=== PATIENT | female | born 1950 | race Caucasian/White ===

== ENCOUNTER → 2019-05-01 14:30 | Outpatient (CLI) | payer MEDICARE, OTHER, SELFPAY ==
--- NOTE | 2019-05-01 14:34 | DI.RAD.S_ITS ---
PROCEDURE: XR RIBS RT 2V INDICATIONS: cough, right rib pain TECHNIQUE: 2 views of the right ribs were acquired. COMPARISON: None. FINDINGS: Surgical changes and devices: None. Bones and chest wall: No fractures or dislocations. No suspicious bony lesions. Overlying soft tissues appear unremarkable. Lateral curvature of the spine and diffuse spondylosis. Lungs and pleura: The visualized lung appears clear. No pleural effusions or pneumothorax are visible. IMPRESSION: No definite or displaced rib fracture. Dictated by: Joey Fernandez M.D. on 05/01/2019 at 17:44 Approved by: Joey Fernandez M.D. on 05/01/2019 at 17:45
--- NOTE | 2019-05-01 14:34 | DI.RAD.S_ITS ---
PROCEDURE: XR CHEST 2V INDICATIONS: cough TECHNIQUE: 2 views of the chest were acquired. COMPARISON: None. FINDINGS: Surgical changes and devices: None. Lungs and pleura: Mild ill-defined perihilar opacities airway thickening. No pleural effusions or pneumothorax. Mediastinum: Mediastinal contours are normal. Heart size is normal. Mild anterior wedging of a lower thoracic vertebral body. IMPRESSION: Ill-defined perihilar opacities airway thickening suggestive of mild viral bronchitis, reactive airways disease in the differential. Dictated by: Joey Fernandez M.D. on 05/01/2019 at 17:29 Approved by: Joey Fernandez M.D. on 05/01/2019 at 17:33
== END ==
PROVIDERS: PCP Student in an Organized Health Care Education/Training Program; Visit Provider Nurse Practitioner Family
DX: R05 Cough (principal); R07.81 Pleurodynia
CPT/HCPCS: 71046; 71100

== ENCOUNTER → 2019-08-06 15:46 | Outpatient (CLI) | payer MEDICARE, OTHER, SELFPAY ==
--- NOTE | 2019-08-06 15:48 | DI.RAD.S_ITS ---
PROCEDURE: XR CHEST 2V INDICATIONS: Cough, wheezing TECHNIQUE: 2 views of the chest were acquired. COMPARISON: [facility], CR, XR CHEST 2V, 05/01/2019, 14:39. FINDINGS: Surgical changes and devices: None. Lungs and pleura: Lungs are clear. No pleural effusions or pneumothorax. There is prominence of the pulmonary vasculature which is similar in appearance to comparison exam of 05/01/19. Mediastinum: Mediastinal contours are normal. Heart size is normal. Bones and chest wall: Mild anterior wedging deformities of the lower thoracic vertebral bodies are noted, stable to comparison exam of 05/01/19 and likely represent the sequela of chronic degenerative change. IMPRESSION: No acute cardiopulmonary disease. Dictated by: Faustino Dunn M.D. on 08/06/2019 at 17:58 Approved by: Faustino Dunn M.D. on 08/06/2019 at 18:01
== END ==
PROVIDERS: PCP Student in an Organized Health Care Education/Training Program; Visit Provider Student in an Organized Health Care Education/Training Program
DX: R05 Cough (principal); R06.2 Wheezing
CPT/HCPCS: 71046

== ENCOUNTER → 2019-10-20 14:42 | Outpatient (CLI) | payer MEDICARE, OTHER, SELFPAY ==
--- NOTE | 2019-10-20 14:45 | DI.MG.S_ITS ---
BILATERAL DIGITAL SCREENING MAMMOGRAM 3D/2D WITH CAD: 10/20/2019 CLINICAL: Routine screening. Family history of breast cancer. Comparison is made to exams dated: 01/07/2018 mammogram, 11/03/2015 mammogram, and 08/04/2014 mammogram - [facility]. There are scattered fibroglandular elements in both breasts. Current study was also evaluated with a Computer Aided Detection (CAD) system. There is an oval low density mass with a circumscribed margin in the left breast at 12 o'clock middle depth. No other significant masses, calcifications, or other findings are seen in either breast. IMPRESSION: INCOMPLETE: NEEDS ADDITIONAL IMAGING EVALUATION The oval low density mass in the left breast is indeterminate. Mediolateral and spot compression views as well as additional views with possible ultrasound are recommended. This exam was interpreted at Station ID: [id number]. NOTE: For mammograms, a report in lay terms will be sent to the patient. Approximately 15% of breast malignancies will not be visualized mammographically. In the management of a palpable breast mass, a negative mammogram must not discourage biopsy of a clinically suspicious lesion. Electronically Signed By: Arpit siddiqui/carlos:10/20/2019 15:36:12 letter sent: Additional Imaging Needed ACR BI-RADS Category 0: Incomplete 3340F
== END ==
PROVIDERS: PCP Student in an Organized Health Care Education/Training Program; Referring Provider Student in an Organized Health Care Education/Training Program; Visit Provider Student in an Organized Health Care Education/Training Program
DX: Z12.31 Encounter for screening mammogram for malignant neoplasm of breast (principal); Z80.3 Family history of malignant neoplasm of breast; Z13.820 Encounter for screening for osteoporosis; Z78.0 Asymptomatic menopausal state; E07.9 Disorder of thyroid, unspecified; R29.890 Loss of height; Z91.89 Other specified personal risk factors, not elsewhere classified
CPT/HCPCS: 77063; 77067; 77080

== ENCOUNTER → 2019-11-04 14:12 | Outpatient (CLI) | payer MEDICARE, OTHER, SELFPAY ==
--- NOTE | 2019-11-04 14:15 | DI.MG.S_ITS ---
UNILATERAL LEFT DIGITAL DIAGNOSTIC MAMMOGRAM 3D/2D WITH ADDITIONAL VIEWS: 11/04/2019 CLINICAL: Additional evaluation requested from prior study. Comparison is made to exams dated: 10/20/2019 mammogram - [facility], 01/07/2018 mammogram, and 11/03/2015 mammogram - [facility] There are scattered fibroglandular elements in left breast. There is a 0.5 cm oval low density mass with a circumscribed margin in the left breast at 12 o'clock middle depth. This is confirmed on today's additional views. No other significant masses or calcifications are seen in the breast. IMPRESSION: INCOMPLETE: NEEDS ADDITIONAL IMAGING EVALUATION The 0.5 cm oval low density mass in the left breast is indeterminate. An ultrasound is recommended for further evaluation and is scheduled to immediately follow this study. This exam was interpreted at Station ID: [id number]. NOTE: For mammograms, a report in lay terms will be sent to the patient. Approximately 15% of breast malignancies will not be visualized mammographically. In the management of a palpable breast mass, a negative mammogram must not discourage biopsy of a clinically suspicious lesion. Electronically Signed By: Saji Barnes M.D. aty/:11/04/2019 15:06:09 ACR BI-RADS Category 0: Incomplete [id number]
--- NOTE | 2019-11-04 14:15 | DI.US.S_ITS ---
ULTRASOUND OF LEFT BREAST AND AXILLA: 11/04/2019 CLINICAL: Abn mammo. Comparison is made to exams dated: 11/04/2019 mammogram, 10/20/2019 mammogram - [facility], 01/07/2018 mammogram, 11/03/2015 mammogram, and 08/04/2014 mammogram - [facility]. Color flow and real-time ultrasound of the left breast axilla were performed. Park scale images of the real-time examination were reviewed. There is a 0.4 cm x 0.5 cm x 0.3 cm oval mass with a few angular margins in the left breast at 12 o'clock anterior depth 2 cm from the nipple. This oval mass is hypoechoic with a well-defined boundary. This correlates with mammography findings. Color flow imaging demonstrates that there is no vascularity present. No significant abnormalities were seen sonographically in the left axilla. IMPRESSION: SUSPICIOUS OF MALIGNANCY The 0.4 cm x 0.5 cm x 0.3 cm oval mass in the left breast is suspicious of malignancy. An ultrasound guided biopsy is recommended. Findings and biopsy recommendations were discussed with the patient by Dr. Ugarte during today's visit. The patient agrees to proceed with the biopsy. This exam was interpreted at Station ID: [id number]. Electronically Signed By: Saji Barnes M.D. at/:11/04/2019 16:56:18 letter sent: Biopsy Required Ultrasound BI-RADS: 4 Suspicious for malignancy
== END ==
PROVIDERS: PCP Student in an Organized Health Care Education/Training Program; Referring Provider Student in an Organized Health Care Education/Training Program; Visit Provider Student in an Organized Health Care Education/Training Program
DX: R92.8 Other abnormal and inconclusive findings on diagnostic imaging of breast (principal); N63.25 Unspecified lump in the left breast, overlapping quadrants
CPT/HCPCS: 76642; 77065; G0279

== ENCOUNTER → 2019-11-27 13:31 | Outpatient (CLI) | payer MEDICARE, OTHER, SELFPAY ==
--- NOTE | 2019-11-27 | PATH_ITS ---
[facility] Accession Number: [id number] . 01 Material submitted: . breast - LT BREAST . 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 [place] grade: 2 of 3 (moderately differentiated). 2. Greatest linear extent: 0.3 cm. 3. Ductal carcinoma in situ: Present, cribriform pattern, nuclear grade 3 of 3, no necrosis identified. 4. Microcalcifications: Present and associated with benign ductal epithelium. 5. Lymph-vascular invasion: Not identified. 6. Prognostic markers: Will be performed and the results will be reported as an addendum. [facility] 12/01/2019 1419 Local . 02 Comment: assurance assistant was performed by Dr. Eastman. . Dr. Rashid's office not available for discussion of results as of 2:15 p.m. on 12/01/2019. . 02 Electronically signed: . Veronika Huerta MD, Pathologist NPI- [id number] . 01 Gross description: . Received in formalin, labeled US/US BX breast per W vac device, are multiple core biopsies of bright yellow and payne-white fibrofatty tissue (lengths-1.0 cm up to 2.2 cm, diameters-less than 0.1 up to 0.2 cm) and multiple fragments of pale yellow and red-brown tissue (2.5 x 0.8 x 0.1 cm in aggregate). The core biopsies are entirely submitted intact in cassette A1, and the fragments are filtered and entirely submitted in cassette A2. Note: Approximate total fixation time in formalin is 66 hours 30 minutes, calculated using a collection date of 11/27/2019 with a time of formalin of 1500. ([id number]) /MRV 11/28/2019 1342 Local . 02 Pathologist provided ICD-10: C50.912 . 02 CPT . 710795, 573559, 122171, 572932 Performed at: 01 [facility] [address] [id number] MD Arpit Sim MD Phone: [phone] Performed at: 02 [facility] [id number] [place] [id number] MD Colleen Eastman MD Phone: [phone]
--- NOTE | 2019-11-27 | DI.US.S_ITS ---
ULTRASOUND GUIDED BIOPSY LEFT BREAST USING VACUUM DEVICE WITH POST MAMMOGRAPHIC AND ULTRASOUND IMAGIN11/27/2019 CLINICAL: Left breast mass. PATIENT CONSENT: Risks (minor bleeding, infection, vasovagal reaction and repeat procedure), benefits and alternatives were explained to the patient and written informed consent was obtained. Correlation is made to exams dated: 11/04/2019 ultrasound, 11/04/2019 mammogram, 10/20/2019 mammogram - [facility], and 01/07/2018 mammogram - [facility]. An ultrasound guided biopsy using real-time ultrasound was performed for the oval mass located in the left breast at 12 o'clock 2 cm from the nipple measuring 0.4 cm. This was described on the previous ultrasound report. The skin was prepped in the usual manner. Local anesthetic was administered to the access site. The abnormality was approached from the lateral aspect. A 13 gauge biopsy needle was placed adjacent to the abnormality under ultrasound guidance. Once the needle was documented to be in the correct location, 6 specimens were obtained using the Mammotome biopsy system. Post procedure mammographic and ultrasound imaging demonstrates the clip at the targeted area. The specimens were sent to the laboratory for pathological analysis. IMPRESSION: ULTRASOUND GUIDED BIOPSY MALIGNANT Ultrasound guided biopsy of the mass in the left breast posterior depth was successful. 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 Imaging findings are concordant. Surgical and Oncological consultation is recommended. This exam was interpreted at Station ID: [id number]. Pablo Kang M.D. fx,slc/:12/02/2019 15:53:26
--- NOTE | 2019-11-27 | DI.MG.S_ITS ---
UNILATERAL LEFT DIGITAL DIAGNOSTIC MAMMOGRAM POST-NEEDLE BIOPSY: 11/27/2019 CLINICAL: Post clip placement. Left breast mass. Comparison is made to exams dated: 11/04/2019 mammogram, 10/20/2019 mammogram - [facility], and 01/07/2018 mammogram - [facility]. There are scattered fibroglandular elements in left breast. There is a biopsy clip in the expected position within 12:00 of the left breast. IMPRESSION: POST PROCEDURE MAMMOGRAM FOR MARKER PLACEMENT The biopsy clip is in expected position. This exam was interpreted at Station ID: [id number]. NOTE: For mammograms, a report in lay terms will be sent to the patient. Approximately 15% of breast malignancies will not be visualized mammographically. In the management of a palpable breast mass, a negative mammogram must not discourage biopsy of a clinically suspicious lesion. Electronically Signed By: Pablo Garcia M.D. fx/:12/01/2019 10:17:33 Entry: - 12/01/2019 10:17:33 ACR BI-RADS Category Post-procedure mammogram for marker placement
--- NOTE | 2019-12-10 09:19 | ONC.MSW ---
Description: New Referral Navigation T/C Reason for Referral: New breast cancer dx. Activity: Called pt to confirm that we've received her referral, introduced myself as the navigator/WATER PURIFIER OPERATOR, and briefly discussed the ongoing availability of assistance, resources and support. Assessed immediate needs. Pt shares that she is feeling very scared and overwhelmed, which has been compounded by the current Covid-19 pandemic. WATER PURIFIER OPERATOR provided counseling to support coping with her diagnosis, fears relating to being at risk and provided reassurance of the measures the hospital is taking to keep our patients safe. She prefers not to have an appointment this week, as she is meeting with the Dr. Nolasco tomorrow, 12/10. She is also scheduled for her radiation ONC consult on 12/31. Forwarded to scheduling for an urgent appt. time next week. No further needs identified at this time.
== END ==
PROVIDERS: PCP Student in an Organized Health Care Education/Training Program; Referring Provider Student in an Organized Health Care Education/Training Program; Visit Provider Student in an Organized Health Care Education/Training Program
DX: C50.812 Malignant neoplasm of overlapping sites of left female breast (principal)
CPT/HCPCS: 19083; 77065

== ENCOUNTER → 2019-12-24 11:09 | Outpatient (CLI) | payer MEDICARE, OTHER, SELFPAY ==
--- NOTE | 2019-12-24 11:11 | DI.RAD.S_ITS ---
PROCEDURE: XR CHEST 2V INDICATIONS: bronchitis TECHNIQUE: 2 views of the chest were acquired. COMPARISON: [facility], CR, XR CHEST 2V, 05/01/2019, 14:39. [facility], CR, XR CHEST 2V, 08/06/2019, 15:57. FINDINGS: Surgical changes and devices: None. Lungs and pleura: Lungs are clear. No pleural effusions or pneumothorax. Mediastinum: The cardiac contours are within normal limits. The aorta demonstrates calcification and tortuosity. Bones and chest wall: No suspicious bony abnormalities. Thoracolumbar anterior wedge deformities are seen, which are similar to the prior examination. Age-appropriate bony degenerative changes are seen. Soft tissues appear unremarkable. IMPRESSION: Clear lungs, without focal infiltrates. Thoracolumbar anterior wedge deformities are seen, as before. Dictated by: Rickie Rivero M.D. on 12/24/2019 at 10:52 Approved by: Rickie Rivero M.D. on 12/24/2019 at 10:53
[2019-12-26 02:14] LABS: COVID19 Sendout Not Detected (Not Detected)
== END ==
PROVIDERS: PCP Student in an Organized Health Care Education/Training Program; Referring Provider Student in an Organized Health Care Education/Training Program; Visit Provider Student in an Organized Health Care Education/Training Program
DX: Z20.828 Contact with and (suspected) exposure to other viral communicable diseases (principal); J40 Bronchitis, not specified as acute or chronic
CPT/HCPCS: 71046; 87635

== ENCOUNTER → 2020-06-04 17:01 | Outpatient (CLI) | payer MEDICARE, OTHER, SELFPAY ==
[2020-06-04 18:24] LABS: Creatinine Urine Random 107.1 mg/dL
[2020-06-04 18:29] LABS: Microalbumin Urine Random < 0.6 mg/dL (0-1.6)
== END ==
PROVIDERS: PCP Student in an Organized Health Care Education/Training Program; Referring Provider Student in an Organized Health Care Education/Training Program; Visit Provider Student in an Organized Health Care Education/Training Program
DX: N18.9 Chronic kidney disease, unspecified (principal)
CPT/HCPCS: 82043; 82570

== ENCOUNTER → 2020-07-15 16:01 | Outpatient (CLI) | payer MEDICARE, OTHER, SELFPAY ==
--- NOTE | 2020-07-15 16:03 | DI.RAD.S_ITS ---
PROCEDURE: XR CHEST 2V INDICATIONS: Cough, chest pain TECHNIQUE: 2 views of the chest were acquired. COMPARISON: [facility], CR, XR CHEST 2V, 12/24/2019, 11:04. [facility], CR, XR CHEST 2V, 08/06/2019, 15:57. FINDINGS: Surgical changes and devices: Postsurgical clips on the left, breast area and left axilla.. Lungs and pleura: Lungs are clear. No pleural effusions or pneumothorax. Mediastinum: Mediastinal contours are normal. Heart size is normal. Bones and chest wall: No suspicious bony abnormalities. Soft tissues appear unremarkable. IMPRESSION: No mass seen, no evidence of pneumonia. Left breast and left axilla surgical clips as noted. A definite source of cough is not found. Dictated by: Nicho Ugarte M.D. on 07/15/2020 at 16:24 Approved by: Nicho Ugarte M.D. on 07/15/2020 at 16:25
[2020-07-15 17:06] LABS: Add Manual Diff / Slide Review NO; Basophils Absolute Auto 100 /uL (0-100); Basophils Percent Auto 1.2 % (0-2); Eosinophils Absolute Auto 200 /uL (0-450); Eosinophils Percent Auto 3.8 % (2-4); Hematocrit 41.2 % (36-46); Hemoglobin 13.9 g/dL (12.0-16.0); Lymphocytes Absolute Auto 1900 /uL (1100-4500); Mean Corpuscular HGB Conc 33.7 % (30-36); Mean Corpuscular Hemoglobin 31.4 PG (26-34); Mean Corpuscular Volume 93.2 fL (80-100); Monocytes Absolute Auto 500 /uL (0-900); Monocytes Percent Auto 9.8 % (3-14); Neutrophils Absolute Auto 2200 /uL (1500-7000); Neutrophils Percent Auto 46.2 % (50-75); Platelet Count 279 X10^3/uL (150-400); Red Blood Cell Count 4.42 X10^6/uL (4.0-5.2); Red Cell Distribution Width 13.3 % (11.6-14.8); White Blood Cell Count 4.7 X10^3/uL (4.5-11.0)
[2020-07-15 17:46] LABS: BUN Creatinine Ratio 20.4 (6-22); Blood Urea Nitrogen 22 mg/dL (7-17); Cholesterol 219 mg/dL (140-199); Estimated Glomerular Filt Rate 50.5 mL/min (>60); HDL Cholesterol 53 mg/dL (40-60); LDL Cholesterol Calculated 132 mg/dL (<100); Triglycerides 170 mg/dL (35-150)
[2020-07-15 18:16] LABS: TSH w/ Reflex to FT4 5.62 uIU/mL (0.47-4.68)
[2020-07-15 18:43] LABS: Free T4, Direct Thyroxine 0.74 ng/dL (0.78-2.19)
== END ==
PROVIDERS: PCP Student in an Organized Health Care Education/Training Program; Referring Provider Student in an Organized Health Care Education/Training Program; Visit Provider Student in an Organized Health Care Education/Training Program
DX: R05 Cough (principal); R07.9 Chest pain, unspecified; M54.9 Dorsalgia, unspecified; J45.909 Unspecified asthma, uncomplicated; N18.9 Chronic kidney disease, unspecified; E78.5 Hyperlipidemia, unspecified; E03.9 Hypothyroidism, unspecified; G89.29 Other chronic pain
CPT/HCPCS: 36415; 71046; 80061; 82565; 84439; 84443; 84520; 85025

== ENCOUNTER → 2020-08-24 15:52 | Outpatient (CLI) | payer MEDICARE, OTHER, SELFPAY ==
[2020-08-24 16:49] LABS: Add Manual Diff / Slide Review NO; Basophils Absolute Auto 100 /uL (0-100); Basophils Percent Auto 1.1 % (0-2); Eosinophils Absolute Auto 200 /uL (0-450); Eosinophils Percent Auto 3.2 % (2-4); Hematocrit 40.6 % (36-46); Hemoglobin 13.7 g/dL (12.0-16.0); Lymphocytes Absolute Auto 2100 /uL (1100-4500); Lymphocytes Percent Auto 42.6 % (25-40); Mean Corpuscular HGB Conc 33.6 % (30-36); Mean Corpuscular Hemoglobin 31.4 PG (26-34); Mean Corpuscular Volume 93.3 fL (80-100); Monocytes Absolute Auto 500 /uL (0-900); Monocytes Percent Auto 10.4 % (3-14); Neutrophils Absolute Auto 2100 /uL (1500-7000); Neutrophils Percent Auto 42.7 % (50-75); Platelet Count 277 X10^3/uL (150-400); Red Blood Cell Count 4.36 X10^6/uL (4.0-5.2); Red Cell Distribution Width 13.1 % (11.6-14.8)
[2020-08-24 16:52] LABS: Alanine Aminotransferase 22 IU/L (<35); Albumin 4.4 g/dL (3.5-5.0); Albumin Globulin Ratio 1.4 (1.0-2.8); Alkaline Phosphatase 71 U/L (38-126); Aspartate Aminotransferase 33 IU/L (14-36); BUN Creatinine Ratio 21.2 (6-22); Bilirubin Total 0.7 mg/dL (0.2-1.3); Blood Urea Nitrogen 22 mg/dL (7-17); Calcium 9.4 mg/dL (8.4-10.2); Carbon Dioxide 31 mmol/L (22-32); Chloride 104 mmol/L (98-107); Estimated Glomerular Filt Rate 52.7 mL/min (>60); Globulin 3.2 g/dL (1.7-4.1); Glucose 103 mg/dL (80-110); HEMOLYSIS < 15 (0-50); Potassium 4.2 mmol/L (3.4-5.1); Sodium 140 mmol/L (137-145); Total Protein 7.6 g/dL (6.3-8.2)
== END ==
PROVIDERS: PCP Student in an Organized Health Care Education/Training Program; Referring Provider Internal Medicine Hematology & Oncology; Visit Provider Internal Medicine Hematology & Oncology
DX: C50.912 Malignant neoplasm of unspecified site of left female breast (principal)
CPT/HCPCS: 36415; 80053; 85025

== ENCOUNTER → 2020-11-09 15:47 | Outpatient (CLI) | payer MEDICARE, OTHER, SELFPAY ==
--- NOTE | 2020-11-09 | DI.MG.S_ITS ---
BILATERAL DIGITAL SCREENING MAMMOGRAM 3D/2D WITH CAD: 11/09/2020 CLINICAL: Routine screening. Breast cancer. Family history of breast cancer. Comparison is made to exams dated: 11/04/2019 mammogram, 10/20/2019 mammogram - [facility], 01/07/2018 mammogram - [facility], [facility], and 11/03/2015 mammogram - [facility]. There are scattered fibroglandular elements in both breasts. Current study was also evaluated with a Computer Aided Detection (CAD) system. There are benign post operative findings in the left breast. No significant masses, calcifications, or other findings are seen in either breast. There has been no significant interval change. IMPRESSION: BENIGN There is no mammographic evidence of malignancy. A 1 year screening mammogram is recommended. This exam was interpreted at Station ID: [id number]. NOTE: For mammograms, a report in lay terms will be sent to the patient. Approximately 15% of breast malignancies will not be visualized mammographically. In the management of a palpable breast mass, a negative mammogram must not discourage biopsy of a clinically suspicious lesion. Electronically Signed By: Oswaldo reyes/carlos:11/12/2020 09:37:59 copy to: Aleks Samayoa letter sent: Normal Exam ACR BI-RADS Category 2: Benign Finding(s) 3342F
== END ==
PROVIDERS: PCP Student in an Organized Health Care Education/Training Program; Referring Provider Internal Medicine Hematology & Oncology; Visit Provider Internal Medicine Hematology & Oncology
DX: Z12.31 Encounter for screening mammogram for malignant neoplasm of breast (principal); Z85.3 Personal history of malignant neoplasm of breast; Z80.3 Family history of malignant neoplasm of breast
CPT/HCPCS: 77063; 77067

== ENCOUNTER → 2021-02-16 14:56 | Outpatient (CLI) | payer MEDICARE, OTHER, SELFPAY | PROVIDERS: PCP Student in an Organized Health Care Education/Training Program; Visit Provider Student in an Organized Health Care Education/Training Program | DX: R30.9 Painful micturition, unspecified (principal); R35.0 Frequency of micturition | CPT/HCPCS: 87086 ==

== ENCOUNTER 2021-02-16 16:08 | Emergency (ER) | payer MEDICARE, OTHER, SELFPAY ==
[2021-02-16] VITALS (8 sets, daily range): BP systolic 135–152; BP diastolic 66–71; PULSE 46–75; RESP 13–20; TEMP 36.9; O2SAT 95–98; BMI 32.5
[2021-02-16 16:55] LABS: Alanine Aminotransferase 17 IU/L (<35); Albumin 4.2 g/dL (3.5-5.0); Albumin Globulin Ratio 1.4 (1.0-2.8); Alkaline Phosphatase 58 U/L (38-126); Aspartate Aminotransferase 29 IU/L (14-36); BUN Creatinine Ratio 15.5 (6-22); Bilirubin Total 0.5 mg/dL (0.2-1.3); Blood Urea Nitrogen 16 mg/dL (7-17); Calcium 9.4 mg/dL (8.4-10.2); Carbon Dioxide 28 mmol/L (22-32); Chloride 104 mmol/L (98-107); Estimated Glomerular Filt Rate 53.3 mL/min (>60); Glucose 105 mg/dL (80-110); HEMOLYSIS < 15 (0-50); Lipase 145 U/L (23-300); Potassium 4.3 mmol/L (3.4-5.1); Sodium 139 mmol/L (137-145); Total Protein 7.2 g/dL (6.3-8.2)
[2021-02-16 17:09] LABS: Add Manual Diff / Slide Review NO; Basophils Absolute Auto 100 /uL (0-100); Eosinophils Absolute Auto 100 /uL (0-450); Eosinophils Percent Auto 1.5 % (2-4); Hematocrit 40.7 % (36-46); Hemoglobin 13.4 g/dL (12.0-16.0); Lymphocytes Absolute Auto 1600 /uL (1100-4500); Lymphocytes Percent Auto 31.2 % (25-40); Mean Corpuscular HGB Conc 33.1 % (30-36); Mean Corpuscular Hemoglobin 31.5 PG (26-34); Mean Corpuscular Volume 95.3 fL (80-100); Monocytes Absolute Auto 500 /uL (0-900); Monocytes Percent Auto 9.5 % (3-14); Neutrophils Absolute Auto 2800 /uL (1500-7000); Neutrophils Percent Auto 56.8 % (50-75); Platelet Count 243 X10^3/uL (150-400); Red Blood Cell Count 4.27 X10^6/uL (4.0-5.2); Red Cell Distribution Width 12.8 % (11.6-14.8)
--- NOTE | 2021-02-16 19:21 | ED.ABDPAIN ---
HPI - Abdominal Pain General Chief Complaint: Abdominal Pain Stated Complaint: abd and side pain, sent by [facility] Time Seen by Provider: 02/16/21 17:36 Source: patient Mode of arrival: Ambulatory Limitations: no limitations History of Present Illness HPI narrative: Patient has a moving van driver. Onset 2 nights ago with lower abdominal pain/right lower abdomen/right lower back pain. Can not find comfortable position. Has nausea no vomiting. Increased urinary frequency but no painful urination. No fever chills. No hematuria. No prior history of kidney stone. Still has her appendix. Sent here from urgent care. No recent illness cough cold congestion. History of breast cancer. Under the treatment of Oncology Dr. Beltran Related Data Home Medications Medication Instructions Recorded Confirmed acetaminophen [Tylenol 8 Hour] 650 mg PO Q8H PRN 02/05/20 02/16/21 ascorbic acid (vitamin C) [Vitamin 500 mg PO DAILY 05/27/20 02/16/21 C] calcium carbonate [Calcium 500] 500 mg BID 05/27/20 02/16/21 cholecalciferol (vitamin D3) 25 mcg PO DAILY 05/27/20 02/16/21 [Vitamin D3] omega 0-euh-hst-fish oil [Jasper-3] 1 cap PO DAILY 05/27/20 02/16/21 aspirin 81 mg PO DAILY 11/25/20 02/16/21 Previous Rx's Medication Instructions Recorded losartan 25 mg tablet 25 mg PO DAILY #90 tab 12/01/19 albuterol sulfate 90 mcg/actuation 1 inh INHALATION Q4-6H PRN #18 gram 12/12/19 aerosol inhaler escitalopram oxalate 20 mg tablet 20 mg PO DAILY #90 tab 05/31/20 azelastine 137 mcg (0.1 %) nasal 1 spray NASAL BID #30 ml 06/04/20 spray aerosol pravastatin 20 mg tablet 20 mg PO BEDTIME #90 tab 08/10/20 levothyroxine 50 mcg tablet 50 mcg PO DAILY #90 tab 01/24/21 tamoxifen 20 mg PO DAILY #90 tab 02/10/21 hydrocodone-acetaminophen 1 tab PO Q6H PRN #12 tab 02/16/21 Allergies Allergy/AdvReac Type Severity Reaction Status Date / Time gabapentin Allergy Intermediate Rash Verified 02/16/21 16:18 anastrozole AdvReac Intermediate Fibromyalgia Verified 02/16/21 16:18 flared up levofloxacin [From Levaquin] AdvReac Intermediate Joint Pain Verified 02/16/21 16:18 Review of Systems Review of Systems Narrative: GENERAL: Denies chills, fatigue, malaise, fever, sweats. HEENT: Denies sinus pain, ear pain, sore throat RESPIRATORY: Denies dyspnea, cough CARDIOVASCULAR: Denies chest pain, palpitations GASTROINTESTINAL: Complaint nausea, denies vomiting, complains abdominal pain : Denies dysuria, complaint frequency, denies hematuria MUSCULOSKELETAL: denies muscle or bony pain SKIN: Denies rash, skin lesions NEUROLOGIC: Denies weakness, numbness ROS Unobtainable: All systems reviewed & are unremarkable except as noted in HPI and below Patient History Medical History Allergies (~1979) Anxiety Arthritis of spine Cancer of left breast greater than 0.1 cm and less than or equal to 0.5 cm in greatest dimension Foot pain (~1985) Hearing loss Mumps (~1961) Nerve damage of left foot Recurrent sinusitis (~1979) Seasonal asthma Surgical History Anesthesia History of foot surgery (~1985) Family History Father History of heart disease Prostate cancer Hyperlipidemia Cancer Hypertension Stroke Mother Hypertension Grandfather Lung disease Grandmother Cancer Grandfather Cancer Grandmother History of heart disease Hypertension Breast cancer Social History Smoking Status: Never smoker alcohol intake: never substance use type: does not use Smoking Status: Never smoker alcohol intake frequency: holidays/special occasions only Substance Use Type: does not use Exam Narrative Exam Narrative: GENERAL: in no distress, not toxic not dyspneic HEAD: Normocephalic. EYES: Pupils equal round No scleral icterus. No injection no discharge ENT: Mucous membranes moist. NECK: Trachea midline. CARDIOVASCULAR: Regular rate and rhythm without murmurs RESPIRATORY: Clear to auscultation. Breath sounds equal bilaterally. No wheezes, rales, or rhonchi. GASTROINTESTINAL: Abdomen soft, non-tender, bowel sounds present no peritoneal signs, no CVA tenderness, no McBurney point tenderness, no lower abdominal tenderness. EXTREMITIES: No gross deformities. BACK: No flank tenderness. NEURO: AOx4. SKIN: Warm and dry PSYCH: Not anxious, is cooperative Initial Vital Signs Initial Vital Signs: Vital Signs Temperature 98.5 F 02/16/21 16:15 Pulse Rate 75 02/16/21 16:15 Respiratory Rate 15 02/16/21 16:15 Blood Pressure 140/67 02/16/21 16:15 Pulse Oximetry 98 02/16/21 16:15 Course Course Course Narrative: No new issues during course of stay Orders Ordered: ED Orders 02/16/21 19:20 CT kidney ureter bladder (KUB) Stat Discontinued Medications Hydrocodone Bitart/Acetaminophen (Hydrocodone/Acet 5/325 Prepack) 1 bottle MISC SEEINSTR ONE Stop: 02/16/21 20:48 Last Admin: 02/16/21 20:54 Dose: 1 bottle Documented by: BRITTANY Sodium Chloride (Normal Saline 0.9%) 1,000 mls @ 1,000 mls/hr IV BOLUS ONE Stop: 02/16/21 20:18 Last Infusion: 02/16/21 20:29 Dose: 0 mls/hr Documented by: Admin: 02/16/21 19:28 Dose: 1,000 mls/hr Documented by: BRITTANY Morphine Sulfate (Morphine 4 Mg/Ml Inj) 4 mg IV NOW ONE Stop: 02/16/21 19:20 Last Admin: 02/16/21 19:28 Dose: 4 mg Documented by: BRITTANY Ondansetron HCl (Ondansetron 4 Mg/2 Ml Inj) 4 mg IV NOW ONE Stop: 02/16/21 19:20 Last Admin: 02/16/21 19:28 Dose: 4 mg Documented by: BRITTANY Reevaluation(s) Reevaluation #1: Pain much better after treatment. Reviewed results with patient. As of now, reassuring exam as well as laboratory studies and imaging. Appropriate for discharge home. She does have family doctor as well as OBGYN to follow up with for continued follow-up and evaluation. She agrees with treatment plan discharge and follow-up Time: 20:44 Vital Signs Vital signs: Vital Signs - 8 hr 02/16/21 19:46 02/16/21 19:47 02/16/21 20:00 Pulse Rate 61 51 L Respiratory Rate 14 13 Blood Pressure 138/67 135/66 Pulse Oximetry 96 95 02/16/21 20:30 Pulse Rate 46 L Respiratory Rate 13 Blood Pressure 135/66 Pulse Oximetry 97 MDM - Abdominal Pain Differential Diagnosis Differential diagnosis: Likely abdominal pain, acute appendicitis, calculus of kidney, diverticulitis and small bowel obstruction Medical Records Attestation: I reviewed the patient's medical records. Lab Data Attestation: I reviewed the patient's lab results. Result diagrams: 02/16/21 16:36 02/16/21 16:36 Labs: Lab Results 02/16/21 02/16/21 Range/Units 16:36 16:36 WBC 5.0 (4.5-11.0) X10^3/uL RBC 4.27 (4.0-5.2) X10^6/uL Hgb 13.4 (12.0-16.0) g/dL Hct 40.7 (36-46) % MCV 95.3 (80-100) fL MCH 31.5 (26-34) PG MCHC 33.1 (30-36) % RDW 12.8 (11.6-14.8) % Plt Count 243 (150-400) X10^3/uL Neut % (Auto) 56.8 (50-75) % Lymph % (Auto) 31.2 (25-40) % Ponce % (Auto) 9.5 (3-14) % Eos % (Auto) 1.5 L (2-4) % Baso % (Auto) 1.0 (0-2) % Neut # (Auto) 2800 (3479-0936) /uL Lymph # (Auto) 1600 (0137-3385) /uL Ponce # (Auto) 500 (0-900) /uL Eos # (Auto) 100 (0-450) /uL Baso # (Auto) 100 (0-100) /uL Sodium 139 (137-145) mmol/L Potassium 4.3 (3.4-5.1) mmol/L Chloride 104 (98-107) mmol/L Carbon Dioxide 28 (22-32) mmol/L BUN 16 (7-17) mg/dL Creatinine 1.03 (0.52-1.04) mg/dL Estimated GFR 53.3 L (>60) mL/min BUN/Creatinine Ratio 15.5 (6-22) Glucose 105 (80-110) mg/dL Calcium 9.4 (8.4-10.2) mg/dL Total Bilirubin 0.5 (0.2-1.3) mg/dL AST 29 (14-36) IU/L ALT 17 (<35) IU/L Alkaline Phosphatase 58 (38-126) U/L Total Protein 7.2 (6.3-8.2) g/dL Albumin 4.2 (3.5-5.0) g/dL Globulin 3.0 (1.7-4.1) g/dL Albumin/Globulin Ratio 1.4 (1.0-2.8) Lipase 145 (23-300) U/L Point of care testing: Urine Dip Bedside Urine Glucose Negative Bedside Urine Bilirubin - Negative Bedside Urine Ketone - Negative Urine Specific [place] 1.020 Bedside Urine Occult Blood - Negative Bedside Urine pH 6.0 Bedside Urine Protein - Negative Bedside Urine Urobilinogen - Negative Bedside Urine Nitrite - Negative Bedside Urine Leukocytes - Negative Esterase Imaging Data CT scan - abdomen/pelvis: Radiologist's Impression: [address] [id number] Scan ReportSigned Patient: Rut Salvador SMR#: [id number]: 2Acct:[id number]/Sex: 70 / FDate of Service: 02/16/21Loc: EDAccession Number: [id number] Procedure: CT kidney ureter bladder (KUB) Ordering Provider: Horacio Mendez MD PROCEDURE: CT KIDNEY URETER BLADDER (KUB) INDICATIONS: Right flank pain TECHNIQUE: Noncontrast 5 mm thick sections acquired from the diaphragms to the symphysis. 5 mm thick coronal and sagittal reformats were then performed. For radiation dose reduction, the following was used: automated exposure control, adjustment of mA and/or kV according to patient size. COMPARISON: None. FINDINGS: Image quality: Excellent. Lung bases: Lung bases are clear. Heart size is normal. Urinary system: Both kidneys are normal in size. No kidney stones. No hydronephrosis or perinephric fat stranding. Both ureters appear non-dilated throughout their expected courses. Bladder wall thickness is normal; no calcified bladder stones. Other solid organs: Liver is normal in size. Gallbladder is unremarkable. Pancreas is normal in contours. Spleen is normal in size. No adrenal nodules. Peritoneum and bowel: Unenhanced bowel loops demonstrate normal wall thickness and caliber. No free fluid or air. Extensive colonic diverticula without acute diverticulitis. Normal appearing appendix. Nodes and vessels: No retroperitoneal or mesenteric adenopathy by size criteria. Aorta and inferior vena cava are normal in caliber. Abdominal wall: No ventral hernias. Pelvis: No free pelvic fluid. No inguinal hernias. No pelvice adenopathy. Bones: No suspicious bony lesions. No acute vertebral body compression fractures. Multilevel spondylosis of the imaged spine. IMPRESSION: CT abdomen and pelvis without evidence for urolithiasis or obstructive uropathy. Normal appendix. Extensive colonic diverticulosis without evidence for acute diverticulitis. Dictated by: Saji Barnes M.D. on 02/16/2021 at 20:02 Approved by: Saji Barnes M.D. on 02/16/2021 at 20:07 [facility] Narrative Medical decision making narrative: Appropriate for discharge home. Exam and workup reassuring. 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 Patient agrees with treatment plan. Prescribed a short course of pain medication for comfort. As requested by patient Discharge Plan Departure Patient Disposition: Home Clinical Impression: Abdominal pain Qualifiers: Abdominal location: unspecified location Qualified Code(s): R10.9 - Unspecified abdominal pain Instructions: DI for Abdominal Pain-Adult Activity Restrictions/Additional Instructions: No driving or operating machinery tonight. Exam and testing tonight has been reassuring. See family doctor or your OBGYN doctor for re-evaluation and possible pelvic ultrasound. Return if worse or for any questions or concerns. Prescriptions: New hydrocodone-acetaminophen 5-325 mg tablet 1 tab PO Q6H PRN (Reason: pain) Qty: 12 RF: 0 No Action losartan 25 mg tablet 25 mg PO DAILY Qty: 90 RF: 3 escitalopram oxalate [Lexapro] 20 mg tablet 20 mg PO DAILY Qty: 90 RF: 3 pravastatin 20 mg tablet 20 mg PO BEDTIME Qty: 90 RF: 3 levothyroxine [Euthyrox] 50 mcg tablet 50 mcg PO DAILY Qty: 90 RF: 1 Hold Instructions: trial of cessation azelastine 137 mcg (0.1 %) aerosol,spray 1 spray NASAL BID Qty: 30 RF: 1 albuterol sulfate 90 mcg/actuation HFA aerosol inhaler 1 inh INHALATION Q4-6H PRN (Reason: shortness of breath) Qty: 18 RF: 11 acetaminophen [Tylenol 8 Hour] 650 mg Tablet Extended Release 650 mg PO Q8H PRN (Reason: Pain (Scale Score 4-6)) RF: 0 ascorbic acid (vitamin C) [Vitamin C] 500 mg Tablet 500 mg PO DAILY RF: 0 calcium carbonate [Calcium 500] 500 mg calcium (1,250 mg) Tablet,Chewable 500 mg BID RF: 0 cholecalciferol (vitamin D3) [Vitamin D3] 25 mcg (1,000 unit) Tablet 25 mcg PO DAILY RF: 0 Jasper-3 350 mg-235 mg- 90 mg-597 mg Capsule,Delayed Release(Dr/Ec) 1 cap PO DAILY RF: 0 aspirin 81 mg Tablet 81 mg PO DAILY RF: 0 tamoxifen 20 mg Tablet 20 mg PO DAILY Qty: 90 RF: 1 Referrals: Aleks Rashid MD [Primary Care Provider] -
[2021-02-16] MEDS: SODIUM CHLORIDE 0.9% 1,000 ML 1000 ML IV (19:28)
[2021-02-16] MEDS: MORPHINE 4 MG/ML INJ IV (19:28)
[2021-02-16] MEDS: ONDANSETRON 4 MG/2 ML INJ IV (19:28)
[2021-02-16] MEDS: HYDROCODONE/ACET 5/325 PREPACK 1 BOTTLE MISC (20:54)
== END 2021-02-16 21:03 | disposition home or self-care (01) ==
PROVIDERS: Emergency Medicine; Emergency Provider Emergency Medicine; PCP Student in an Organized Health Care Education/Training Program
DX: R10.9 Unspecified abdominal pain (principal); R11.0 Nausea
CPT/HCPCS: 36415; 74176; 80053; 81003; 83690; 85025; 96361; 96374; 96375; 99284; J2270; J2405

== ENCOUNTER → 2021-06-21 14:45 | Outpatient (CLI) | payer MEDICARE, OTHER, SELFPAY ==
--- NOTE | 2021-06-21 14:47 | DI.US.S_ITS ---
PROCEDURE: US PELVIC COMPLETE INDICATIONS: TAMOXIFEN; RIGHT PELVIC PAIN TECHNIQUE: Real-time scanning was performed of the pelvic organs, with image documentation. Additional endovaginal scanning was necessary due to incomplete visualization of the adnexal and endometrial structures by transabdominal scanning. COMPARISON: [facility], CT, CT KIDNEY URETER BLADDER (KUB), 02/16/2021, 19:27. FINDINGS: Uterus: Uterus is normal in size at 5.4 x 3.3 x 5.8 cm. The endometrium measures 15.6 mm in combined thickness. Ovaries: Not visualized. Other: No pathologic free abdominal or pelvic fluid. IMPRESSION: Markedly thickened endometrium given postmenopausal age. Recommend ENVIRONMENTAL PROGRAMS MANAGER consult for sampling as neoplasm cannot be definitively excluded. Dictated by: Iwona Holcomb M.D. on 06/21/2021 at 16:09 Approved by: Iwona Holcomb M.D. on 06/21/2021 at 16:10
== END ==
PROVIDERS: PCP Student in an Organized Health Care Education/Training Program; Referring Provider Internal Medicine Hematology & Oncology; Visit Provider Internal Medicine Hematology & Oncology
DX: C50.912 Malignant neoplasm of unspecified site of left female breast (principal); R10.31 Right lower quadrant pain; R93.89 Abnormal findings on diagnostic imaging of other specified body structures; Z79.810 Long term (current) use of selective estrogen receptor modulators (SERMs)
CPT/HCPCS: 76830; 76856

== ENCOUNTER → 2021-10-06 16:48 | Outpatient (CLI) | payer MEDICARE, OTHER, SELFPAY ==
[2021-10-06 18:31] LABS: TSH w/ Reflex to FT4 0.27 uIU/mL (0.47-4.68)
[2021-10-06 19:05] LABS: Free T4, Direct Thyroxine 1.15 ng/dL (0.78-2.19)
== END ==
PROVIDERS: PCP Student in an Organized Health Care Education/Training Program; Referring Provider Student in an Organized Health Care Education/Training Program; Visit Provider Student in an Organized Health Care Education/Training Program
DX: E03.9 Hypothyroidism, unspecified (principal)
CPT/HCPCS: 36415; 84439; 84443

== ENCOUNTER → 2021-11-11 15:59 | Outpatient (CLI) | payer MEDICARE, OTHER, SELFPAY ==
--- NOTE | 2021-11-11 16:02 | DI.MG.S_ITS ---
BILATERAL DIGITAL SCREENING MAMMOGRAM 3D/2D WITH CAD: 11/11/2021 CLINICAL: Routine screening. Personal history of left breast cancer. Family history of breast cancer. Comparison is made to exams dated: 11/09/2020 mammogram, 11/27/2019 ultrasound biopsy, 11/27/2019 mammogram, 10/20/2019 mammogram, and 11/04/2019 mammogram - [facility]. There are scattered fibroglandular elements in both breasts. Current study was also evaluated with a Computer Aided Detection (CAD) system. There are benign post operative findings in the left breast. No significant masses, calcifications, or other findings are seen in either breast. There has been no significant interval change. IMPRESSION: BENIGN There is no mammographic evidence of malignancy. A 1 year screening mammogram is recommended. This exam was interpreted at Station ID: [id number]. NOTE: For mammograms, a report in lay terms will be sent to the patient. Approximately 15% of breast malignancies will not be visualized mammographically. In the management of a palpable breast mass, a negative mammogram must not discourage biopsy of a clinically suspicious lesion. Electronically Signed By: Katie mix/carlos:11/11/2021 17:09:17 copy to: Aleks Samayoa letter sent: Normal Exam ACR BI-RADS Category 2: Benign Finding(s) 3342F
== END ==
PROVIDERS: PCP Student in an Organized Health Care Education/Training Program; Referring Provider Internal Medicine Hematology & Oncology; Visit Provider Internal Medicine Hematology & Oncology
DX: Z12.31 Encounter for screening mammogram for malignant neoplasm of breast (principal); C50.912 Malignant neoplasm of unspecified site of left female breast; Z80.3 Family history of malignant neoplasm of breast
CPT/HCPCS: 77063; 77067

== ENCOUNTER → 2022-05-12 15:22 | Outpatient (CLI) | payer MEDICARE, OTHER, SELFPAY ==
[2022-05-12 16:56] LABS: TSH w/ Reflex to FT4 2.69 uIU/mL (0.47-4.68)
== END ==
PROVIDERS: PCP Student in an Organized Health Care Education/Training Program; Referring Provider Student in an Organized Health Care Education/Training Program; Visit Provider Student in an Organized Health Care Education/Training Program
DX: E03.9 Hypothyroidism, unspecified (principal)
CPT/HCPCS: 84443

== ENCOUNTER → 2022-11-13 15:44 | Outpatient (CLI) | payer MEDICARE, OTHER, SELFPAY ==
--- NOTE | 2022-11-13 15:47 | DI.MG.S_ITS ---
BILATERAL DIGITAL SCREENING MAMMOGRAM 3D/2D WITH CAD: 11/13/2022 CLINICAL: Routine screening. Breast cancer. Family history of breast cancer. Comparison is made to exams dated: 11/11/2021 mammogram, 11/09/2020 mammogram, 11/27/2019 mammogram, 11/04/2019 mammogram, and 10/20/2019 mammogram - [facility]. There are scattered areas of fibroglandular density in both breasts (category b / 25%-50% glandular tissue). Current study was also evaluated with a Computer Aided Detection (CAD) system. There are benign post operative findings in the left breast. No significant masses, calcifications, or other findings are seen in either breast. There has been no significant interval change. IMPRESSION: BENIGN There is no mammographic evidence of malignancy. A 1 year screening mammogram is recommended. This exam was interpreted at Station ID: [id number]. NOTE: For mammograms, a report in lay terms will be sent to the patient. Approximately 15% of breast malignancies will not be visualized mammographically. In the management of a palpable breast mass, a negative mammogram must not discourage biopsy of a clinically suspicious lesion. Electronically Signed By: Bal thurston/carlos:11/14/2022 09:16:23 copy to: Aleks Samayoa letter sent: Normal Exam ACR BI-RADS Category 2: Benign Finding(s) 3342F
== END ==
PROVIDERS: PCP Student in an Organized Health Care Education/Training Program; Referring Provider Internal Medicine Hematology & Oncology; Visit Provider Internal Medicine Hematology & Oncology
DX: C50.912 Malignant neoplasm of unspecified site of left female breast (principal); Z12.31 Encounter for screening mammogram for malignant neoplasm of breast; Z80.3 Family history of malignant neoplasm of breast
CPT/HCPCS: 77063; 77067

== ENCOUNTER → 2023-10-18 15:27 | Outpatient (CLI) | payer MEDICARE, OTHER, SELFPAY ==
[2023-10-18 17:22] LABS: Alanine Aminotransferase 28 IU/L (<35); Albumin 4.3 g/dL (3.5-5.0); Albumin Globulin Ratio 1.3 (1.0-2.8); Alkaline Phosphatase 52 U/L (38-126); Aspartate Aminotransferase 40 IU/L (14-36); BUN Creatinine Ratio 17.2 (6-22); Bilirubin Total 0.8 mg/dL (0.2-1.3); Blood Urea Nitrogen 20 mg/dL (7-17); Calcium 9.9 mg/dL (8.4-10.2); Carbon Dioxide 27 mmol/L (22-32); Chloride 104 mmol/L (98-107); Cholesterol 185 mg/dL (140-199); Estimated Glomerular Filt Rate 50 mL/min (>60); Globulin 3.2 g/dL (1.7-4.1); Glucose 104 mg/dL (80-110); HDL Cholesterol 47 mg/dL (40-60); HEMOLYSIS < 15 (0-50); LDL Cholesterol Calculated 99 mg/dL (<100); Potassium 4.2 mmol/L (3.4-5.1); Sodium 141 mmol/L (137-145); Total Protein 7.5 g/dL (6.3-8.2); Triglycerides 194 mg/dL (35-150)
[2023-10-18 19:35] LABS: Thyroid Stimulating Hormone 1.83 uIU/mL (0.47-4.68)
== END ==
PROVIDERS: PCP Family Medicine; Referring Provider Family Medicine; Visit Provider Family Medicine
DX: I10 Essential (primary) hypertension (principal); E78.2 Mixed hyperlipidemia; E03.9 Hypothyroidism, unspecified; N18.9 Chronic kidney disease, unspecified
CPT/HCPCS: 36415; 80053; 80061; 84443

== ENCOUNTER → 2023-11-14 14:34 | Outpatient (CLI) | payer MEDICARE, OTHER, SELFPAY ==
--- NOTE | 2023-11-14 14:38 | DI.MG.S_ITS ---
BILATERAL DIGITAL SCREENING MAMMOGRAM 3D/2D WITH CAD: 11/14/2023 CLINICAL: Routine screening. Personal history of left breast cancer. Family history of breast cancer. Comparison is made to exams dated: 11/13/2022 mammogram, 11/11/2021 mammogram, and 11/09/2020 mammogram - [facility]. There are scattered areas of fibroglandular density in both breasts (category b / 25%-50% glandular tissue). Current study was also evaluated with a Computer Aided Detection (CAD) system. There are benign post operative findings in the left breast. No significant masses, calcifications, or other findings are seen in either breast. There has been no significant interval change. IMPRESSION: BENIGN There is no mammographic evidence of malignancy. A 1 year screening mammogram is recommended. This exam was interpreted at Station ID: [id number]. NOTE: For mammograms, a report in lay terms will be sent to the patient. Approximately 15% of breast malignancies will not be visualized mammographically. In the management of a palpable breast mass, a negative mammogram must not discourage biopsy of a clinically suspicious lesion. Electronically Signed By: Katie mix/carlos:11/14/2023 17:16:02 copy to: Aleks Samayoa letter sent: Normal Exam ACR BI-RADS Category 2: Benign Finding(s) 3342F
== END ==
PROVIDERS: PCP Family Medicine; Referring Provider Internal Medicine Hematology & Oncology; Visit Provider Internal Medicine Hematology & Oncology
DX: Z12.31 Encounter for screening mammogram for malignant neoplasm of breast (principal); Z85.3 Personal history of malignant neoplasm of breast; Z80.3 Family history of malignant neoplasm of breast; R92.323 Mammographic fibroglandular density, bilateral breasts
CPT/HCPCS: 77063; 77067

== ENCOUNTER → 2023-12-12 14:42 | Outpatient (CLI) | payer MEDICARE, OTHER, SELFPAY | PROVIDERS: PCP Family Medicine; Visit Provider Family Medicine | DX: R30.0 Dysuria (principal) | CPT/HCPCS: 87086 ==

== ENCOUNTER → 2023-12-19 15:40 | Outpatient (CLI) | payer MEDICARE, OTHER, SELFPAY ==
--- NOTE | 2023-12-19 15:43 | DI.CT.S_ITS ---
PROCEDURE: CT SINUS SCREEN WO CON INDICATIONS: Chronic pansinusitis TECHNIQUE: Noncontrast 3.0 mm axial images acquired from the frontal sinuses to the mid-sella, with coronal and sagittal reformats. For radiation dose reduction, the following was used: automated exposure control, adjustment of mA and/or kV according to patient size. COMPARISON: None. FINDINGS: Image quality: Excellent. Maxillary Sinuses: No bony remodeling or destruction. There is a mild degree of mucosal thickening within the inferior right maxillary sinus. There is a mucous retention cyst along the medial wall of the right maxillary sinus. Ethmoid Air Cells: No bony remodeling or destruction. Sinuses are clear. Sphenoid Sinuses: No bony remodeling or destruction. Sinuses are clear. Frontal Sinuses: No bony remodeling or destruction. Sinuses are clear. Ostiomeatal Complexes: The ostiomeatal complexes are patent, yet they are constitutionally narrowed, with bilateral Margi cells. Miscellaneous: Visualized intra-orbital contents are normal. No andrés bullosa or paradoxical turbinate curvature. There is a rightward directed bony nasal septal spur, as on series 4, image 25. No significant nasal septal deviation is seen. IMPRESSION: Mild right maxillary sinus disease can be seen. The ostiomeatal complexes are patent, yet they are constitutionally narrowed, with bilateral Margi cells. Dictated by: Rickie Rivero M.D. on 12/19/2023 at 15:18 Approved by: Rickie Rivero M.D. on 12/19/2023 at 15:20
== END ==
PROVIDERS: PCP Family Medicine; Referring Provider Otolaryngology; Visit Provider Otolaryngology
DX: J32.4 Chronic pansinusitis (principal); G44.89 Other headache syndrome
CPT/HCPCS: 70486

== ENCOUNTER → 2024-11-19 16:06 | Outpatient (CLI) | payer MEDICARE, OTHER, SELFPAY ==
--- NOTE | 2024-11-19 16:10 | DI.MG.S_ITS ---
MM screening mammo BI: 11/19/2024. BI-RADS: 2 CLINICAL: 74-year old female for bilateral screening mammogram. No Tyrer-Cuzick risk score calculation due to the patient's personal history of breast cancer. Patient reports a history of left breast carcinoma diagnosed at age 70. Status-post left lumpectomy with radiation therapy and hormonal therapy. No first-degree family history of breast cancer. Current reported family history of breast cancer: maternal grandmother and maternal aunt. The patient had a prior left breast biopsy. PRIOR EXAMS: 11/14/2023, 11/13/2022, 11/11/2021. MAMMOGRAPHY TECHNIQUE: 2D and 3D (tomosynthesis) digital mammographic views obtained, with additional images as needed for full coverage. Current study was also evaluated with a Computer Aided Detection (CAD) system. DENSITY B. There are scattered areas of fibroglandular density. MAMMOGRAPHY FINDINGS Right: No suspicious finding with benign findings noted. Left: Benign-appearing post-surgical changes noted on the left. No suspicious finding with benign findings noted. IMPRESSION: * No evidence of malignancy with benign findings. RECOMMENDATIONS Bilateral * Annual screening mammography. OVERALL ASSESSMENT CATEGORY BI-RADS-2: Benign. The [employer] recommends annual screening mammography beginning at age 40 for women with average risk of breast cancer. ELECTRONICALLY SIGNED: Bal Kang M.D. on 11/20/2024 at 05:47:07 PM Interpreting Station ID: [id number]
== END ==
LOC: MAMMO 16:09
PROVIDERS: PCP Family Medicine; Referring Provider Family Medicine; Visit Provider Family Medicine
DX: Z12.31 Encounter for screening mammogram for malignant neoplasm of breast (principal); Z85.3 Personal history of malignant neoplasm of breast; Z80.3 Family history of malignant neoplasm of breast
CPT/HCPCS: 77063; 77067

== ENCOUNTER → 2024-12-19 15:11 | Outpatient (CLI) | payer MEDICARE, OTHER, SELFPAY ==
[2024-12-19 16:27] LABS: Add Manual Diff / Slide Review NO; Basophils Absolute Auto 100 /uL (0-100); Basophils Percent Auto 1.1 % (0-2); Eosinophils Absolute Auto 200 /uL (0-450); Eosinophils Percent Auto 3.4 % (2-4); Hematocrit 41.3 % (36-46); Hemoglobin 13.8 g/dL (12.0-16.0); Lymphocytes Absolute Auto 2000 /uL (1100-4500); Lymphocytes Percent Auto 37.4 % (25-40); Mean Corpuscular HGB Conc 33.4 % (30-36); Mean Corpuscular Hemoglobin 31.9 PG (26-34); Mean Corpuscular Volume 95.4 fL (80-100); Monocytes Absolute Auto 500 /uL (0-900); Monocytes Percent Auto 9.9 % (3-14); Neutrophils Absolute Auto 2600 /uL (1500-7000); Neutrophils Percent Auto 48.2 % (50-75); Platelet Count 287 X10^3/uL (150-400); Red Blood Cell Count 4.33 X10^6/uL (4.0-5.2); Red Cell Distribution Width 13.6 % (11.6-14.8); White Blood Cell Count 5.3 X10^3/uL (4.5-11.0)
[2024-12-19 16:58] LABS: Alanine Aminotransferase 44 IU/L (<35); Albumin 4.3 g/dL (3.5-5.0); Albumin Globulin Ratio 1.9 (1.0-2.8); Alkaline Phosphatase 80 U/L (38-126); Aspartate Aminotransferase 47 IU/L (14-36); BUN Creatinine Ratio 21.5 (6-22); Bilirubin Total 0.5 mg/dL (0.2-1.3); Blood Urea Nitrogen 23 mg/dL (7-17); Calcium 9.6 mg/dL (8.4-10.2); Carbon Dioxide 26 mmol/L (22-32); Chloride 107 mmol/L (98-107); Cholesterol 210 mg/dL (140-199); Estimated Glomerular Filt Rate 55 mL/min (>60); Globulin 2.3 g/dL (1.7-4.1); Glucose 105 mg/dL (80-110); HDL Cholesterol 61 mg/dL (40-60); HEMOLYSIS < 15 (0-50); LDL Cholesterol Calculated 133 mg/dL (<100); Potassium 4.3 mmol/L (3.4-5.1); Sodium 141 mmol/L (137-145); Total Protein 6.6 g/dL (6.3-8.2); Triglycerides 81 mg/dL (35-150)
[2024-12-19 17:15] LABS: Vitamin D 25 Hydroxy (D3) 81.7 ng/mL (30.0-100.0)
[2024-12-19 17:28] LABS: TSH w/ Reflex to FT4 1.58 uIU/mL (0.47-4.68)
== END ==
PROVIDERS: PCP Family Medicine; Referring Provider Family Medicine; Visit Provider Family Medicine
DX: E78.2 Mixed hyperlipidemia (principal); Z79.899 Other long term (current) drug therapy; C50.912 Malignant neoplasm of unspecified site of left female breast; I10 Essential (primary) hypertension; Z78.0 Asymptomatic menopausal state; Z92.29 Personal history of other drug therapy
CPT/HCPCS: 36415; 80053; 80061; 82306; 84443; 85025